=== PATIENT | female | born 1990 | race Hispanic/Latino ===

== ENCOUNTER 2024-05-25 17:30 | Emergency (ER) | payer OTHER, SELFPAY ==
[2024-05-25 18:05] LABS: #Basophils 0.04 10x3/uL (0.0-0.2); #Eosinphils 0.04 10x3/uL (0.0-0.5); #Monocytes 0.42 10x3/uL (0.0-1.1); #Neutrophils 4.58 10x3/uL (1.5-8.4); %Basophils 0.6 % (0.0-2.0); %Eosinophils 0.6 % (0.0-6.0); %Lymphocytes 19.8 % (18.0-47.0); %Monocytes 6.6 % (0.0-10.0); %Neutrophils 72.1 % (40.0-75.0); Hematocrit 37.9 % (34.9-44.5); Hemoglobin 12.6 g/dL (12.0-15.5); Mean Corpuscular HGB CONC 33.2 g/dL (32.0-36.0); Mean Corpuscular Hemoglobin 26.4 pg (27.0-33.0); Mean Corpuscular Volume 79.3 fL (81.6-98.3); Mean Platelet Volume 10.4 fL (7.4-10.4); Platelet Count 280 10x3/uL (150-450); Red Blood Cell (RBC) Count 4.78 10x6/uL (3.90-5.03); White Blood Cell (WBC) Count 6.4 10x3/uL (3.5-10.5)
[2024-05-25] MEDS ORDERED: Ondansetron ODT 4 MG TAB ONE (18:05)
[2024-05-25 18:13] LABS: Bilirubin Neg (Negative); Blood, Urine 50 (Negative); Glucose, Urine (Dipstick) Normal (Negative); Ketone, Urine 150 mg/dL (Negative); Leukocyte 500 (Negative); Nitrite Negative (Negative); Protein, Urine (Dipstick) 15 mg/dl (Neg-Trace); Urobilinogen Normal mg/dL (Less than 2)
[2024-05-25 18:18] LABS: ALT (SGPT) 25 U/L (8-55); AST (SGOT) 25 U/L (5-34); Albumin 4.5 g/dL (3.5-5.0); Alkaline Phosphatase 55 U/L (40-110); Anion Gap 15 mmol/L (10-20); BUN (Urea Nitrogen) 9 mg/dL (7.0-18.7); Bilirubin, Total 0.8 mg/dL (0.2-1.2); Calc. Creatinine Clearance 0 mL/min (70-130); Calcium 9.5 mg/dL (7.8-10.44); Carbon Dioxide 20 mmol/L (22-29); Chloride 104 mmol/L (98-107); Estimated GFR 108; Globulin 3.4 g/dL (2.4-3.5); Glucose 94 mg/dL (70-105); Potassium 3.8 mmol/L (3.5-5.1); Protein, Total 7.9 g/dL (6.0-8.3); Sodium 135 mmol/L (136-145)
[2024-05-25 18:22] LABS: Clarity Slightly Cloudy (Clear)
[2024-05-25 18:25] LABS: Bacteria/HPF 2+ HPF (None Seen); CAUTI Indications for Culture Pelvic or flank pain; Mucous/LPF 2+ LPF (<2+); WBC/HPF 21-50 HPF (0-3)
[2024-05-25 18:27] LABS: Urine Culture Reflex Yes Yes
== END 2024-05-25 20:07 | disposition home or self-care (01) ==
LOC: CSHERS 17:30
DX: O20.8 Other hemorrhage in early pregnancy (principal); O23.41 Unspecified infection of urinary tract in pregnancy, first trimester; N39.0 Urinary tract infection, site not specified; Z3A.01 Less than 8 weeks gestation of pregnancy
CPT/HCPCS: 36415; 76856; 80053; 81001; 84702; 85025; 86900; 86901; 87086; Q0162

== ENCOUNTER 2024-05-30 08:19 | Emergency (ER) | payer MEDICAID, SELFPAY ==
[2024-05-30] MEDS ORDERED: diphenhydrAMINE 50 MG/ML VIAL ONE (08:45)
[2024-05-30] MEDS ORDERED: Metoclopramide HCl 10 MG (2 mL) VIAL ONE (08:45)
[2024-05-30 09:20] LABS: #Basophils 0.07 10x3/uL (0.0-0.2); #Eosinphils 0.04 10x3/uL (0.0-0.5); #Monocytes 0.62 10x3/uL (0.0-1.1); %Basophils 1.1 % (0.0-2.0); %Eosinophils 0.6 % (0.0-6.0); %Lymphocytes 23.1 % (18.0-47.0); %Monocytes 9.5 % (0.0-10.0); %Neutrophils 65.5 % (40.0-75.0); Hematocrit 37.3 % (34.9-44.5); Hemoglobin 12.2 g/dL (12.0-15.5); Mean Corpuscular HGB CONC 32.7 g/dL (32.0-36.0); Mean Corpuscular Hemoglobin 25.8 pg (27.0-33.0); Mean Platelet Volume 10.3 fL (7.4-10.4); Platelet Count 241 10x3/uL (150-450); RBC Distribution Width 15.6 % (11.5-14.5); Red Blood Cell (RBC) Count 4.72 10x6/uL (3.90-5.03); White Blood Cell (WBC) Count 6.6 10x3/uL (3.5-10.5)
[2024-05-30 09:58] LABS: ALT (SGPT) 30 U/L (8-55); AST (SGOT) 27 U/L (5-34); Albumin 4.5 g/dL (3.5-5.0); Alkaline Phosphatase 53 U/L (40-110); Anion Gap 15 mmol/L (10-20); BUN (Urea Nitrogen) 12 mg/dL (7.0-18.7); Bilirubin, Total 0.7 mg/dL (0.2-1.2); Calc. Creatinine Clearance 0 mL/min (70-130); Calcium 10.1 mg/dL (7.8-10.44); Carbon Dioxide 20 mmol/L (22-29); Chloride 106 mmol/L (98-107); Estimated GFR 105; Globulin 3.3 g/dL (2.4-3.5); Glucose 94 mg/dL (70-105); Protein, Total 7.8 g/dL (6.0-8.3); Sodium 137 mmol/L (136-145)
== END 2024-05-30 10:49 | disposition home or self-care (01) ==
LOC: CSHERS 08:19
DX: O21.0 Mild hyperemesis gravidarum (principal); Z3A.01 Less than 8 weeks gestation of pregnancy
CPT/HCPCS: 80053; 85025; 96361; 96365; 96375; J1200; J2765

== ENCOUNTER 2024-06-05 22:42 | Emergency (ER) | payer MEDICAID ==
[2024-06-05 23:42] LABS: Anion Gap 16 mmol/L (10-20); BUN (Urea Nitrogen) 15 mg/dL (7.0-18.7); Calc. Creatinine Clearance 0 mL/min (70-130); Carbon Dioxide 22 mmol/L (22-29); Chloride 101 mmol/L (98-107); Estimated GFR 110; Glucose 95 mg/dL (70-105); Potassium 3.8 mmol/L (3.5-5.1); Sodium 135 mmol/L (136-145)
== END 2024-06-06 01:49 | disposition home or self-care (01) ==
LOC: CSHERS 22:42
DX: O21.9 Vomiting of pregnancy, unspecified (principal); Z3A.08 8 weeks gestation of pregnancy
CPT/HCPCS: 80048; 96361; 96374; 96375; J0780; J2405